=== PATIENT | female | born 1975 | race Caucasian/White ===

== ENCOUNTER 2021-09-06 11:46 | Emergency (ER) | payer OTHER, SELFPAY ==
--- NOTE | ~2021-09-06 | XR_ITS ---
EXAMINATION: XR abdomen/kub 1V DATE: 09/06/2021 13:14 INDICATION: Left flank pain. TECHNIQUE: A supine view of the abdomen on 2 radiographs was obtained. COMPARISON: CT abdomen and pelvis 09/06/2021 FINDINGS: There are no dilated loops of bowel. There are stones in the kidneys measuring up to 4 mm o n the left. There is a 5 mm stone in proximal left ureter. There are surgical clips in the pelvis. Th ere are phleboliths in the pelvis. There are benign bone islands in the pelvis. IMPRESSION: 1. 5 mm stone in proximal left ureter. 2. Bilateral nonobstructing kidney stones. Reviewed, dictated and finalized at location B.
--- NOTE | ~2021-09-06 | CT_ITS ---
EXAMINATION: CT abdomen pelvis wo con DATE: 09/06/2021 12:41 INDICATION: Left flank pain. TECHNIQUE: Computed tomography (CT) of the abdomen and pelvis was performed without intravenous contr ast. Automated exposure control and iterative reconstruction technique were employed. The dose-length product was 415.29 mGy-cm. COMPARISON: CT abdomen and pelvis 01/15/2012 FINDINGS: The visualized portions of the lung bases demonstrated mild atelectasis. There are trace pl eural effusions. The heart size is normal. No pericardial effusion. There is diffuse hepatic steatosi s. The gallbladder, spleen, pancreas, and right adrenal gland are normal. There is a 1.8 cm mass in l eft adrenal gland measuring low-attenuation, consistent with an adenoma. There are approximately 6 st ones in right kidney measuring up to 3 mm. There are approximately 9 stones in left kidney measuring up to 4 mm. There is mild left hydronephrosis. There is a 5 mm stone in proximal left ureter. There i s diverticulosis of the colon without evidence of diverticulitis. The appendix is normal. There are n o dilated loops of bowel. There are no pathologically enlarged lymph nodes. There is no free intraper itoneal fluid. There are benign bone islands in the pelvis. There is mild thoracolumbar spondylosis. IMPRESSION: 1. 5 mm stone in proximal left ureter with mild left hydronephrosis. 2. Bilateral nonobstructing kidney stones. Reviewed, dictated and finalized at location B.
[2021-09-06 11:51] VITALS: BP 105/55; PULSE 64; RESP 18; TEMP 36.2; O2SAT 100
--- NOTE | 2021-09-06 12:05 | PC.NURSE ---
Dr. Tejada at bedside to assess pt.
[2021-09-06 12:21] LABS: Appearance Urine Cloudy (Clear); Bilirubin Urine Negative (Negative); Blood Urine 2+ (Negative); Color Urine Yellow (Yellow); Glucose Urine UA Negative (Negative); Ketones Urine Negative (Negative); Leukocyte Esterase Ur Negative LEU/UL (Negative); Nitrate Urine Negative (Negative); Protein Urine 1+ mg/dL (Negative); Specific Grav Ur 1.025 (1.001-1.035); Urobilinogen Urine 0.2 mg/dL (<2.0); pH Urine 6.5 (5.0-9.0)
[2021-09-06 12:28] LABS: Mucus Urine Rare /lpf; RBC Urine >75 /hpf (0-2); Squamous Epithelial Cell Urine Many /hpf (Few)
[2021-09-06 12:31] LABS: Add Urine Microscopic? YES
--- NOTE | 2021-09-06 12:39 | PC.NURSE ---
Patient off unit to CT.
--- NOTE | 2021-09-06 13:02 | PC.NURSE ---
Pt off unit to radiology for KUB
[2021-09-06 13:05] LABS: Basophils Percent Auto 0.3 % (0.2-1.2); Eosinophils Absolute Auto 0.1 K/mm3 (0-0.3); Eosinophils Percent Auto 1.1 % (0-4.4); Hematocrit 40.7 % (37.0-47.0); Hemoglobin 13.6 g/dL (12.0-15.0); Immature Granulocyte Absolute 0.05 K/mm3 (0.00-0.031); Immature Granulocyte Percent A 0.4 % (0-0.5); Lymphocytes Absolute Auto 2.24 K/mm3 (0.9-3.2); Lymphocytes Percent Auto 18.6 % (18.3-44.2); Mean Corpuscular HGB Conc 33.4 g/dl (32-36); Mean Corpuscular Hemoglobin 30.2 pg (26-34); Mean Corpuscular Volume 90.2 fl (80-100); Mean Platelet Volume 9.8 fl (7.4-10.4); Monocytes Absolute Auto 0.5 K/mm3 (0.1-0.6); Neutrophils Absolute Auto 9.1 K/mm3 (1.3-6.7); Neutrophils Percent Auto 75.6 % (45.5-73.1); Platelet Count Result 332 k/mm3 (150-375); Red Blood Count 4.51 M/mm3 (4.2-5.4); Red Cell Distribution Width 13.1 % (11.5-14.5)
[2021-09-06 13:24] LABS: Alanine Aminotransferase 28 U/L (4-35); Albumin Level 4.3 g/dL (3.5-5.1); Alkaline Phosphatase 65 U/L (38-126); Anion Gap 6 mmol/L (8-16); Aspartate Amino Transferase 36 U/L (14-36); Bilirubin,Total 0.6 mg/dL (0.2-1.3); Blood Urea Nitrogen 7 mg/dL (7-17); Calcium 8.9 mg/dL (8.4-10.2); Carbon Dioxide 25 mmol/L (22-30); Chloride 102 mmol/L (98-107); Estimated CRCL calculation 87 ml/min; Estimated Glomerular Filt Rate > 60; Glucose 154 mg/dL (65-110); Potassium 3.7 mmol/L (3.4-5.0); Sodium 133 mmol/L (137-145)
[2021-09-06] MEDS: fentaNYL CITRATE INJ (*CRX) 100 MCG/2 ML VIAL 50 MCG IV PUSH (13:25)
--- NOTE | 2021-09-06 13:56 | ED.FEMALEGU ---
HPI - Female Genitourinary General Chief complaint: Urogenital-Female Stated complaint: left flank pain/dizziness Time Seen by Provider: 09/06/21 12:01 History of Present Illness HPI Narrative: Patient is a 45-year-old female who presents ER with concerns for kidney stones. Has history of kidney stones in the past. Pain located on left side. Ongoing over the last 2 days. Cramping radiating to the mid abdomen. Associate with nausea. No fevers or chills or sweats. No urinary frequency urgency or dysuria. Reports a little pinkish hue to the urine. Related Data Home Medications Medication Instructions Recorded Confirmed atorvastatin 20 mg PO DAILY 09/06/21 09/06/21 citalopram 40 mg PO DAILY 09/06/21 09/06/21 metformin 500 mg PO DAILY 09/06/21 09/06/21 potassium chloride 10 meq PO DAILY 09/06/21 09/06/21 semaglutide [Ozempic] mg SUBCUT 09/06/21 09/06/21 Allergies Allergy/AdvReac Type Severity Reaction Status Date / Time levofloxacin Allergy Mild Rash Verified 09/06/21 12:06 morphine Allergy Itching Verified 09/06/21 12:06 Penicillins AdvReac Diarrhea Verified 09/06/21 12:06 Review of Systems Review of Systems: All systems reviewed & are unremarkable except as noted in HPI and below Constitutional: Constitutional: Denies chills and Denies fatigue ENT: Denies nasal congestion and Denies sore throat Gastrointestinal: Gastrointestinal: Reports abdominal pain, Reports nausea and Denies vomiting Genitourinary: Genitourinary: Reports hematuria, Denies nocturia, Denies dysuria and Reports flank pain Musculoskeletal: Musculoskeletal: Denies back pain and Denies muscle cramps PMFSH Past Medical History Medical History (Updated 09/06/21 @ 14:00 by Samuel Tejada MD) Depression Diabetes Hypercholesterolemia Ureterolithiasis Surgical History Surgical History (Updated 09/06/21 @ 14:00 by Samuel Tejada MD) H/O lithotripsy Social History Social History (Updated 09/06/21 @ 14:00 by Samuel Tejada MD) Smoking status: Never smoker Exam Narrative: GENERAL: Well-appearing, well-nourished, and in no acute distress. HEAD: Normocephalic, atraumatic. ENT: Mucous membranes moist. CHEST: Clear to auscultation. No respiratory distress. HEART: Regular rate and rhythm. Normal peripheral pulses. ABDOMEN: Soft, nontender, nondistended, no CVA tenderness. EXTREMITIES: Normal range of motion. No edema. SKIN: Warm, dry, no rash. NEURO: Alert and oriented x3. PSYCH: Normal mood and affect. Course Course Emergency Course: Patient informed of results. Discussed treatment plan. Patient verbalized understanding. Discharge home with supportive medications. Vital Signs Vital signs: Vital Signs Temperature 97.2 F L 09/06/21 11:51 Pulse Rate 64 09/06/21 11:51 Respiratory Rate 18 09/06/21 11:51 Blood Pressure 105/55 L 09/06/21 11:51 Pulse Oximetry 100 09/06/21 11:51 Temperature 97.2 F L 09/06/21 11:51 Pulse Rate 64 09/06/21 11:51 Respiratory Rate 18 09/06/21 11:51 Blood Pressure 105/55 L 09/06/21 11:51 Pulse Oximetry 100 09/06/21 11:51 MDM - Female Genitourinary Lab Data Result diagrams: 09/06/21 12:09 09/06/21 12:09 Labs: Lab Results 09/06/21 09/06/21 09/06/21 Range/Units 12:09 12:09 12:09 WBC 12.0 H (4.5-10.0) K/mm3 RBC 4.51 (4.2-5.4) M/mm3 Hgb 13.6 (12.0-15.0) g/dL Hct 40.7 (37.0-47.0) % MCV 90.2 (80-100) fl MCH 30.2 (26-34) pg MCHC 33.4 (32-36) g/dl RDW 13.1 (11.5-14.5) % Plt Count 332 (150-375) k/mm3 MPV 9.8 (7.4-10.4) fl Immature Gran % (Auto) 0.4 (0-0.5) % Neut % (Auto) 75.6 H (45.5-73.1) % Lymph % (Auto) 18.6 (18.3-44.2) % [place] % (Auto) 4.0 (2.6-8.5) % Eos % (Auto) 1.1 (0-4.4) % Baso % (Auto) 0.3 (0.2-1.2) % Lymph # (Auto) 2.24 (0.9-3.2) K/mm3 [place] # (Auto) 0.5 (0.1-0.6) K/mm3 Eos # (Auto) 0.1 (0-0.3) K/mm3 Baso # (Auto
[2021-09-06] MEDS: KETOROLAC 30 MG/ML VIAL (*BKC) IV PUSH (14:29)
[2021-09-06 14:50] VITALS: BP 147/82; PULSE 82; RESP 19; TEMP 36.9; O2SAT 96
== END 2021-09-06 14:53 | disposition home or self-care (01) ==
PROVIDERS: Emergency Medicine; Emergency Provider Emergency Medicine; PCP Family Medicine
DX: N13.2 Hydronephrosis with renal and ureteral calculous obstruction (principal); E78.00 Pure hypercholesterolemia, unspecified; E11.9 Type 2 diabetes mellitus without complications; Z79.84 Long term (current) use of oral hypoglycemic drugs; Z79.899 Other long term (current) drug therapy; F32.A Depression, unspecified
CPT/HCPCS: 36415; 74018; 74176; 80053; 81001; 85025; 96374; 96375; 99284; J1885; J3010

== ENCOUNTER → 2021-09-17 13:33 | Outpatient (CLI) | payer OTHER, SELFPAY ==
--- NOTE | ~2021-09-17 | XR_ITS ---
EXAMINATION: XR abdomen/kub 1V DATE: 09/17/2021 13:55 INDICATION: Left ureteral stone. TECHNIQUE: A supine view of the abdomen on 2 radiographs was obtained. COMPARISON: Abdomen radiographs 09/06/2021, CT abdomen and pelvis 09/06/2021 FINDINGS: There is a 5 mm stone in proximal left ureter at L4. There are stones in the kidneys measur ing up to 5 mm on the left. There are phleboliths in the pelvis. There is a surgical clip in the pelv is. There are no dilated loops of bowel. IMPRESSION: 1. 5 mm stone in proximal left ureter. 2. Bilateral nonobstructing kidney stones. Reviewed, dictated and finalized at location D.
== END ==
PROVIDERS: PCP Family Medicine; Visit Provider Urology
DX: N20.2 Calculus of kidney with calculus of ureter (principal)
CPT/HCPCS: 74018

== ENCOUNTER 2021-09-20 14:06 | Outpatient (CLI) | payer OTHER, SELFPAY ==
--- NOTE | 2021-09-20 14:33 | ECG_ITS ---
Measurements Intervals [place] Rate: 66 P: 33 DE: 156 QRS: 38 QRSD: 89 T: 56 QT: 432 QTc: 455 Interpretive Statements SINUS RHYTHM INCOMPLETE RIGHT BUNDLE BRANCH BLOCK BASELINE ARTIFACT- I, II, III, AVR, AVL, AVF BORDERLINE ECG Electronically Signed On 09-20-2021 15:27:33 CDT by Say Arguelles D.O.
[2021-09-20 15:00] LABS: Appearance Urine Cloudy (Clear); Bilirubin Urine Negative (Negative); Blood Urine 1+ (Negative); Color Urine Yellow (Yellow); Glucose Urine UA Negative (Negative); Ketones Urine Negative (Negative); Leukocyte Esterase Ur Negative LEU/UL (Negative); Nitrate Urine Negative (Negative); Protein Urine Negative (Negative); Specific Grav Ur 1.025 (1.001-1.035); Urobilinogen Urine 0.2 mg/dL (<2.0); pH Urine 5.5 (5.0-9.0)
[2021-09-20 15:06] LABS: Bacteria Urine Trace /hpf; Mucus Urine Rare /lpf; Squamous Epithelial Cell Urine Many /hpf (Few)
[2021-09-20 15:07] LABS: Add Urine Microscopic? YES
[2021-09-20 15:08] LABS: Prothrombin Time 12.8 Seconds (11.1-14.7)
[2021-09-20 15:09] LABS: Partial Thromboplastin Time 28.2 SECONDS (22.3-36.8)
== END 2021-09-20 14:07 | disposition home or self-care (01) ==
PROVIDERS: PCP Family Medicine; Visit Provider Urology
DX: N20.1 Calculus of ureter (principal); Z01.818 Encounter for other preprocedural examination; I10 Essential (primary) hypertension; I45.10 Unspecified right bundle-branch block
CPT/HCPCS: 36415; 81001; 85610; 85730; 93005

== ENCOUNTER 2021-09-21 01:21 | Day surgery (SDC) | payer OTHER, SELFPAY ==
[2021-09-20 13:21] VITALS: BMI 29.1
--- NOTE | 2021-09-20 13:42 | PC.NURSE ---
Report to the Outpatient Waiting Room, entrance under the green pavilion located off [facility], at time __9:45 AM on date __09/21/21 . OR Time: __11:45AM . - You and your visitor will be asked a series of questions to screen for COVID 19 for your protection. - Only one visitor is allowed at this time. - The patient visitor is requested to leave or wait in car when not with patient. - A mask is required within the hospital. Patients may have clear liquids (water, carbonated beverages, clear teas, apple juice) until 3 hours prior to surgery with a maximum of 20 ounces. - No food from midnight until time of surgery - Infants may have breast milk until 4 hours before surgery, infant formula 6 hours prior to surgery. - Children will be allowed to drink immediately following surgery. If applicable, please bring a bottle or sippy cup to assist with drinking. Juice, water, soda, and popsicles are readily available. For infants on formula, please bring formula the day of surgery. Pacifiers are allowed. Take the following medications with a SIP of water the morning of surgery: ___CITALOPRAM, HYDROCODONE NEEDED Medications to discontinue per physician NONE Date to take last dose Please no make-up, nail mongolian, hairspray, perfume, deodorant, or body powder the day of surgery. No jewelry (including any body piercings) or valuables the day of surgery, leave them at home. Please take a shower or bath the night before, or the morning of, surgery with an antibacterial soap. Wear comfortable, loose fitting clothing. Children are encouraged to wear pajamas. - Jewelry must be removed prior to entering the operating room. Rings and piercings that are not removed may be cut off. - The hospital will not accept responsibility for valuables. - Please leave all valuables, including medications, at home the day of surgery. If you are going home after surgery, a licensed mule driver must drive you home. - NO public transportation without another adult. - We recommend that an adult stay with you for 24 hours following discharge. - We also recommend that you do not drive, make important decision, drink alcoholic beverages, or take any drugs that were not prescribed by your health care provider for at least 24 hours after your discharge time. For Pediatric surgeries, we recommend two adults accompany the child home (only one inside the building at this time). Follow any additional instructions given to you from your surgeon. If you or anyone in your household have experienced Covid symptoms in the past week, please notify your surgeon or the nurse liaison at the phone number below for possible testing. Telephone instructions given to __PATIENT and asked if any additional questions and then verbalized understanding. Patient advised to call surgeon office or pre surgery nurse liaison [phone] if any additional questions.
--- NOTE | 2021-09-20 14:09 | WPDANESEPP ---
Anes - Eval Pre Procedure Procedure: Operation Date: 09/21/21 11:45 Proposed Procedures p Left Extracorporeal Shock Wave Lithotripsy - Jose Benito MD Date/Time: 09/20/21 14:09 Pre Op Diagnosis: Lt Ureteral Stone Patient Data Age: 45 Gender: F Height: 1.63 m Weight: 77 kg Allergies Allergy/AdvReac Type Severity Reaction Status Date / Time morphine Allergy Itching Verified 09/20/21 13:14 Penicillins AdvReac Diarrhea Verified 09/20/21 13:14 Home Medications Medication Instructions Recorded Confirmed Type atorvastatin 20 mg PO DAILY 09/06/21 09/20/21 History citalopram 40 mg PO QAM 09/06/21 09/20/21 History hydrocodone-acetaminophen 1 tablet PO Q6H PRN #20 tablet 09/06/21 09/20/21 Rx metformin 500 mg PO BID 09/06/21 09/20/21 History ondansetron 4 mg PO Q6H PRN #8 tablet 09/06/21 09/20/21 Rx potassium chloride 10 meq PO BID 09/06/21 09/20/21 History semaglutide [Ozempic] 0.25 mg SUBCUT WEEKLY 09/06/21 09/20/21 History ergocalciferol (vitamin D2) 1,250 mcg PO WEEKLY 09/20/21 09/20/21 History hydrochlorothiazide 50 mg PO QAM 09/20/21 09/20/21 History Patient hx anesthesia problems: none Family hx anesthesia problems: none Results Review: All pre-operative results and documents have been reviewed as part of the pre-operative evaluation. [facility] Past Medical History Medical History (Updated 09/20/21 @ 14:10 by Prabhjot Enriquez DO) Anxiety Depression Diabetes Hypercholesterolemia Hypertension Ureterolithiasis Surgical History Surgical History (Updated 09/20/21 @ 14:10 by Prabhjot Enriquez DO) H/O lithotripsy History of hysterectomy Social History Social History (Updated 09/06/21 @ 14:00 by Samuel Tejada MD) Smoking packs per day: 1 Smoking cigarettes per day: 20.0 Years smoked: 20 Smoking pack-years: 20.00 Smoking status: Former smoker Tobacco type: cigarettes and e-cigarettes/vaping Smoking end date: 09/05/21 Additional smoking assessment comments: CURRENTLY VAPING Alcohol intake: current Substance use: never Additional living arrangements comments: HUSB AND FATHER Spiritual care concerns: No Exam Day of Procedure 09/20/21 14:09
[2021-09-21] VITALS (7 sets, daily range): BP systolic 104–123; BP diastolic 55–70; PULSE 58–91; RESP 10–16; TEMP 36.1–36.6; O2SAT 95–100
--- NOTE | ~2021-09-21 | XR_ITS ---
EXAMINATION: XR abdomen/kub 1V INDICATION: Urolithiasis TECHNIQUE: Supine views of the abdomen were obtained on 2 radiographs. COMPARISON: 09/17/2021 FINDINGS: A 6 mm stone projects in the left ureter at the level of the left L4 transverse process. A small cluster of stones is present in the lower pole of the left kidney. There are punctate right kid damian stones measuring up to 3 mm. Phleboliths are noted in the left pelvis. There is a surgical clip i n the right pelvis. The bowel gas pattern is normal. The visualized lung bases are clear. IMPRESSION: 1. Stable left ureteral stone. 2. Bilateral nephrolithiasis. Reviewed, dictated and finalized at location B.
--- NOTE | 2021-09-21 06:32 | WPDHPUPDATE1 ---
History and Physical Update Update Date/Time: 09/21/21 06:32 History and Physical has been reviewed, including an updated exam of the patient. There are NO changes in the patient's condition. Risks, benefits, and alternatives have been discussed and questions answered. Patient agrees to proceed with procedure.
[2021-09-21] MEDS: LACTATED RINGERS 1,000 ML 30 ML IV CONT ×2 (10:15→11:46)
[2021-09-21 10:20] LABS: Glucose Point of Care 176 mg/dl (65-105)
--- NOTE | 2021-09-21 10:29 | WPDANESEFPP ---
Anes - Eval Final PreProcedure Day of Procedure 09/21/21 10:29 Patient weight: overweight Heart: regular rate and rhythm Lungs: clear to auscultation Airway: Mallampati scale class II Neurological: alert and oriented Last oral intake: >/= 8 hours ASA classification: III Emergent: no Anesthetic plan: proceed Anesthesia type and monitoring: general and standard monitoring Results Review: All pre-operative results and documents have been reviewed as part of the pre-operative evaluation. Informed Consent: The patient's anesthetic plan and its attendant risks and benefits were discussed with the patient/family/POA. Questions were solicited and answers provided to the satisfaction of the patient/family/POA.
[2021-09-21] MEDS: fentaNYL CITRATE INJ (*CRX) 100 MCG/2 ML VIAL 50 MCG IV PUSH (10:35)
[2021-09-21] MEDS: ceFAZolin 2 GM/D5W 50 ML 2 GM/50 ML BAG IVPB (10:57)
--- NOTE | 2021-09-21 11:39 | W.PM.PROC2 ---
Procedure Note - Detailed Date of Procedure 09/21/21 Pre-op Diagnosis Lt Ureteral Stone Post-op Diagnosis Same Procedure Performed Left ureteral ESWL Surgeon Jose Benito MD Anesthesia General Description of Procedure The patient was brought to the operative suite where she was placed in the supine position on the Dornier lithotripsy table. The focal point of the lithotripter was placed at a 6mm left mid-ureteal calculus. A total of 3000 shocks were delivered at a power setting of 1-6. There appeared to be good fragmentation of the stone. The patient tolerated the procedure well and was taken to the recovery room in good condition. Estimated Blood Loss 0 Drains No Packing No Pathology None sent Complications No immediate complications Condition Stable Disposition PACU
[2021-09-21] MEDS: KETOROLAC 30 MG/ML VIAL (*BKC) IV PUSH (11:41)
[2021-09-21 12:15] LABS: Glucose Point of Care 138 mg/dl (65-105)
[2021-09-21] MEDS: oxyCODONE HCL (*CRX) 5 MG TAB IR PO (13:12)
== END 2021-09-21 13:31 | disposition home or self-care (01) ==
PROVIDERS: PCP Family Medicine; Visit Provider Urology
PROC: (CPT 50590; principal; 2021-09-21 11:45)
DX: N20.1 Calculus of ureter (principal); Z79.84 Long term (current) use of oral hypoglycemic drugs; F41.8 Other specified anxiety disorders; E11.9 Type 2 diabetes mellitus without complications; I10 Essential (primary) hypertension; E78.00 Pure hypercholesterolemia, unspecified
CPT/HCPCS: 50590; 36415; 74018; 81001; 82948; 85610; 85730; 93005; A9270; J0690; J1100; J1885; J2250; J2405; J2704; J3010; J7120

== ENCOUNTER → 2021-10-08 10:49 | Outpatient (CLI) | payer OTHER, SELFPAY ==
--- NOTE | ~2021-10-08 | XR_ITS ---
XR abdomen/kub 1V 10/08/2021 11:52 Indication: Renal stones Procedure: KUB Comparison: 09/21/2021 Findings: There are bilateral renal stones, more numerous on the left. There are pelvic phleboliths. There are surgical clips in the pelvis. Bowel gas pattern is nonobstructive. Impression: 1: Bilateral nephrolithiasis. Reviewed, dictated and finalized at location A. Impression: 1: Bilateral nephrolithiasis.
== END ==
PROVIDERS: PCP Family Medicine; Visit Provider Urology
DX: N20.0 Calculus of kidney (principal)
CPT/HCPCS: 74018

== ENCOUNTER → 2022-01-29 12:27 | Outpatient (CLI) | payer OTHER, SELFPAY ==
--- NOTE | ~2022-01-29 | MM_ITS ---
EXAMINATION: MM screening maddie BI w christina HISTORY: Screening mammogram TECHNIQUE: Craniocaudal and mediolateral oblique 3-D tomosynthesis images were obtained and synthetic 2-D images were generated. Bilateral rotated lateral CC views. CAD analysis was submitted and interp reted. COMPARISON: No prior mammogram is available for comparison at this institution. BREAST PARENCHYMAL COMPOSITION: There are scattered areas of fibroglandular density. FINDINGS: There is no evidence of suspicious mass, calcification, or architectural distortion to sugg est malignancy in either breast.. IMPRESSION: 1. No mammographic evidence of malignancy. 2. Recommend routine screening mammography in one year. BI-RADS Category 1: Negative Reviewed, dictated and finalized at location A.
== END ==
PROVIDERS: PCP Family Medicine; Visit Provider Physician Assistant
DX: Z12.31 Encounter for screening mammogram for malignant neoplasm of breast (principal)
CPT/HCPCS: 77063; 77067

== ENCOUNTER → 2023-03-14 09:12 | Outpatient (CLI) | payer OTHER, SELFPAY ==
--- NOTE | ~2023-03-14 | US_ITS ---
EXAMINATION: US pelvic complete w TV DATE: 03/14/2023 09:42 INDICATION: Pelvic pain Comparison:No prior studies for comparison. TECHNIQUE: Multiple transabdominal and endovaginal sonographic images of the pelvis performed. FINDINGS: The uterus is surgically absent. The ovaries are not visualized due to overlying bowel. There is no free fluid in the pelvis. There a re no abnormal masses seen on either side. In the area of palpable concern in the right lower abdomen there is a complex hypoechoic irregular sh aped mass which is wider than tall, no posterior features measuring 1.4 x 1.4 x 0.9 cm. IMPRESSION: 1. Complex 1.4 cm mass in the right lower abdomen in the area of palpable concern, nonspecific. Corre lation with contrast-enhanced CT recommended. Reviewed, dictated and finalized at location B. IMPRESSION: 1. Complex 1.4 cm mass in the right lower abdomen in the area of palpable fransisco rn, nonspecific. Correlation with contrast-enhanced CT recommended.
== END ==
PROVIDERS: PCP Family Medicine; Visit Provider Obstetrics & Gynecology
DX: R19.00 Intra-abdominal and pelvic swelling, mass and lump, unspecified site (principal)
CPT/HCPCS: 76830; 76856

== ENCOUNTER → 2023-04-09 09:51 | Outpatient (CLI) | payer OTHER, SELFPAY ==
--- NOTE | ~2023-04-09 | CT_ITS ---
EXAMINATION: CT abdomen pelvis w con INDICATION: Right lower quadrant pain TECHNIQUE: Computed tomographic images of the abdomen and pelvis were obtained after the administrati on of 100 cc of Omnipaque 350 intravenous contrast. The dose-length product (DLP) was 401.11 mGy-cm. Automated exposure control and iterative reconstruction technique were employed. COMPARISON: 09/06/2021; ultrasound, 03/14/2023 FINDINGS: Minimal dependent atelectasis is present in the lung bases. The heart size is normal. There is a small sliding hiatal hernia. The liver, spleen, pancreas, gallbladder, and right adrenal gland are normal. There is an unchanged 1.8 cm mass of the left adrenal gland, consistent with an adenoma. Nonobstructing stones of the right kidney measure up to 4 mm. Nonobstructing stones of the left kidne y lower pole measure up to 8 mm. There are no stones of the ureters or bladder. No pathologically enl arged abdominal or pelvic lymph nodes are identified. No free intraperitoneal gas or evidence of felipa l obstruction. The appendix is normal. There is a small ventral hernia containing fat of the right lo wer quadrant (image 89). IMPRESSION: 1. Small ventral hernia the right lower quadrant containing fat. Reviewed, dictated and finalized at location F. [employer]
[2023-04-09 10:14] LABS: Estimated Glomerular Filt Rate > 60
== END ==
PROVIDERS: PCP Obstetrics & Gynecology; Visit Provider Obstetrics & Gynecology
DX: R10.9 Unspecified abdominal pain (principal); R93.89 Abnormal findings on diagnostic imaging of other specified body structures
CPT/HCPCS: 74177; Q9967

== ENCOUNTER 2023-10-16 13:28 | Outpatient (CLI) | payer OTHER, SELFPAY ==
--- NOTE | ~2023-10-16 | MM_ITS ---
EXAMINATION: MM screening [facility] BI w christina HISTORY: Screening TECHNIQUE: Craniocaudal and mediolateral oblique 3-D tomosynthesis images were obtained and synthetic 2-D images were generated. CAD analysis was submitted and interpreted. COMPARISON: 01/29/2022 BREAST PARENCHYMAL COMPOSITION: Not dense: There are scattered areas of fibroglandular density. FINDINGS: There is a new focal asymmetry in the upper outer quadrant of the right breast, middle thir d. The left breast is stable without evidence for malignancy. IMPRESSION: 1. New focal right breast asymmetry. 2. Additional mammographic views and possible breast ultrasound are recommended. BI-RADS Category 0: Incomplete: Needs additional imaging evaluation. Reviewed, dictated and finalized at location B. IMPRESSION: 1. New focal right breast asymmetry. 2. Additional mammographic views and possible breast ultrasound are recommended . BI-RADS Category 0: Incomplete: Needs additional imaging evaluation.
== END 2023-10-16 13:29 ==
LOC: MICIMG 13:29
PROVIDERS: PCP Nurse Practitioner; Visit Provider Nurse Practitioner
DX: Z12.31 Encounter for screening mammogram for malignant neoplasm of breast (principal); R92.8 Other abnormal and inconclusive findings on diagnostic imaging of breast
CPT/HCPCS: 77063; 77067

== ENCOUNTER 2023-11-12 07:53 | Outpatient (CLI) | payer OTHER, SELFPAY ==
--- NOTE | ~2023-11-12 | MM_ITS ---
EXAMINATION: MM diagnostic maddie RT w christina HISTORY: Focal asymmetry right breast TECHNIQUE: Additional 3-D tomosynthesis spot compression images of the right breast were performed an d synthetic 2-D images were generated. CAD analysis was submitted and interpreted. COMPARISON: 09/19/2023, 01/29/2022 FINDINGS: There are scattered fibroglandular densities. The focal asymmetry in the slightly upper, slightly outer right breast effaces with spot compression. No persistent mass lesion or distortion seen. No suspicious mass opacification. IMPRESSION: No mammographic evidence for malignancy. Return screening mammography advised. BI-RADS Category 1: Negative Reviewed, dictated and finalized at location .
== END 2023-11-12 07:54 ==
PROVIDERS: PCP Nurse Practitioner; Visit Provider Nurse Practitioner
DX: R92.8 Other abnormal and inconclusive findings on diagnostic imaging of breast (principal)
CPT/HCPCS: 77061; 77065; G0279

== ENCOUNTER 2024-05-07 01:36 | Day surgery (SDC) | payer OTHER, SELFPAY ==
[2024-04-28 16:01] VITALS: BMI 29.2
[2024-05-07 13:50] VITALS: BP 143/78; PULSE 71; RESP 18; TEMP 36.3; O2SAT 99; BMI 29.7
[2024-05-07 14:06] LABS: Glucose Point of Care 128 mg/dl (65-105)
--- NOTE | 2024-05-07 14:20 | WPDANESEPPF ---
Anes - Initial Pre Proc Eval Procedure: Operation Date: 05/07/24 14:30 Proposed Procedures p Screening Colonoscopy - Konstantin Smith MD Date/Time: 05/07/24 14:20 Surgeon: Konstantin Smith MD Pre Op Diagnosis: Screening for malignant neoplasm of colon Patient Data Age: 48 Gender: F Height: 1.63 m Weight: 78.7 kg Last Vital Signs Temp 36.3 C L 05/07/24 13:50 Pulse 71 05/07/24 13:50 Resp 18 05/07/24 13:50 BP 143/78 H 05/07/24 13:50 Pulse Ox 99 05/07/24 13:50 O2 Del Method Room Air 05/07/24 13:50 Allergies Allergy/AdvReac Type Severity Reaction Status Date / Time doxycycline Allergy Intermediate ITCHING Verified 05/07/24 13:49 morphine Allergy Intermediate Itching Verified 05/07/24 13:49 Penicillins AdvReac Diarrhea Verified 05/07/24 13:49 Home Medications ?Medication ?Instructions ?Recorded ?Confirmed ?Type atorvastatin 20 mg tablet 20 mg PO DAILY 09/06/21 05/07/24 History metformin 500 mg tablet,extended 1,000 mg PO BID 09/06/21 05/07/24 History release 24 hr ergocalciferol (vitamin D2) 1,250 1,250 mcg PO WEEKLY 09/20/21 05/07/24 History mcg (50,000 unit) capsule ashwagandha root extract 500 mg 500 mg PO DAILY 04/28/24 04/28/24 History capsule cranberry 500 mg capsule 500 mg PO DAILY 04/28/24 05/07/24 History dapagliflozin propanediol 10 mg 10 mg PO DAILY 04/28/24 05/07/24 History tablet (Farxiga) dapagliflozin propanediol 5 mg mg 04/28/24 History tablet (Farxiga) famotidine 10 mg tablet (Acid 10 mg PO DAILY 04/28/24 05/07/24 History Popcorn Vendor (famotidine)) hydroxyzine HCl 25 mg tablet 25 mg PO HS 04/28/24 05/07/24 History magnesium oxide 500 mg capsule 500 mg PO DAILY 04/28/24 05/07/24 History venlafaxine 150 mg 150 mg PO QAM 04/28/24 05/07/24 History capsule,extended release 24 hr Laboratory Tests 05/07/24 13:56 POC Capillary Glucose 128 H mg/dl (65-105) Patient hx anesthesia problems: none Family hx anesthesia problems: none Results Review: All pre-operative results and documents have been reviewed as part of the pre-operative evaluation. [facility] Past Medical History Medical History Anxiety Hypertension Depression Hypercholesterolemia Diabetes Ureterolithiasis Surgical History Surgical History History of hysterectomy H/O lithotripsy Social History Social History Smoking packs per day: 0.5 Smoking cigarettes per day: 10.0 Years smoked: 20 Smoking pack-years: 10.00 Smoking status: Former smoker Tobacco type: cigarettes and e-cigarettes/vaping Smoking end date: 09/05/21 Additional smoking assessment comments: VAPING X 3 YEARS SINCE 2020 Alcohol intake: current Substance use: never Substance use type: does not use Living arrangements: with family Additional living arrangements comments: HUSB AND FATHER Spiritual care concerns: No Anes - Eval Final PreProcedure Day of Procedure 05/07/24 14:20 Patient weight: overweight Heart: regular rate and rhythm Lungs: clear to auscultation Airway: Mallampati scale class 1 and special considerations (dentures) Neurological: alert and oriented Last oral intake: >/= 8 hours ASA classification: III Emergent: no Anesthetic plan: proceed Anesthesia type and monitoring: general GIVS Results Review: All pre-operative results and documents have been reviewed as part of the pre-operative evaluation. Informed Consent: The patient's anesthetic plan and its attendant risks and benefits were discussed with the patient/family/POA. Questions were solicited and answers provided to the satisfaction of the patient/family/POA.
[2024-05-07] MEDS: LACTATED RINGERS 1,000 ML 150 ML IV CONT (14:47)
--- NOTE | 2024-05-07 14:52 | PM.HPGS ---
History of Present Illness History of Present Illness Consent: Risks, benefits, and alternatives have been discussed and questions answered. Patient agrees to proceed with procedure. Chief complaint: Screening for malignant neoplasm of colon Narrative: María Dumont is a 48 year old female here for first screening colonoscopy Review of Systems Review of Systems: All systems reviewed & are unremarkable except as noted in HPI and below PMFSH Past Medical History Medical History (Updated 05/07/24 @ 14:53 by Konstantin Smith MD) Colon cancer screening Anxiety Hypertension Depression Hypercholesterolemia Diabetes Ureterolithiasis Surgical History Surgical History History of hysterectomy H/O lithotripsy Social History Social History Smoking packs per day: 0.5 Smoking cigarettes per day: 10.0 Years smoked: 20 Smoking pack-years: 10.00 Smoking status: Former smoker Tobacco type: cigarettes and e-cigarettes/vaping Smoking end date: 09/05/21 Additional smoking assessment comments: VAPING X 3 YEARS SINCE 2020 Alcohol intake: current Substance use: never Substance use type: does not use Living arrangements: with family Additional living arrangements comments: HUSB AND FATHER Spiritual care concerns: No Meds Home Medications and Allergies Home Medications ?Medication ?Instructions ?Recorded ?Confirmed ?Type atorvastatin 20 mg tablet 20 mg PO DAILY 09/06/21 05/07/24 History metformin 500 mg tablet,extended 1,000 mg PO BID 09/06/21 05/07/24 History release 24 hr ergocalciferol (vitamin D2) 1,250 1,250 mcg PO WEEKLY 09/20/21 05/07/24 History mcg (50,000 unit) capsule ashwagandha root extract 500 mg 500 mg PO DAILY 04/28/24 04/28/24 History capsule cranberry 500 mg capsule 500 mg PO DAILY 04/28/24 05/07/24 History dapagliflozin propanediol 10 mg 10 mg PO DAILY 04/28/24 05/07/24 History tablet (Farxiga) dapagliflozin propanediol 5 mg mg 04/28/24 History tablet (Farxiga) famotidine 10 mg tablet (Acid 10 mg PO DAILY 04/28/24 05/07/24 History [employer] 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 (famotidine)) hydroxyzine HCl 25 mg tablet 25 mg PO HS 04/28/24 05/07/24 History magnesium oxide 500 mg capsule 500 mg PO DAILY 04/28/24 05/07/24 History venlafaxine 150 mg 150 mg PO QAM 04/28/24 05/07/24 History capsule,extended release 24 hr Allergies Allergy/AdvReac Type Severity Reaction Status Date / Time doxycycline Allergy Intermediate ITCHING Verified 05/07/24 13:49 morphine Allergy Intermediate Itching Verified 05/07/24 13:49 Penicillins AdvReac Diarrhea Verified 05/07/24 13:49 Vital Signs Vital Signs - 24 hr 05/07/24 13:50 Temperature 97.4 F L Pulse Rate 71 Respiratory Rate 18 Blood Pressure 143/78 H Pulse Oximetry 99 Oxygen Delivery Room Air Exam Const: General: comfortable and no acute distress HENMT: Face/Nose/Sinus: Normal nares present Eyes: General: appearance normal, both eyes and all related structures Neck: Neck: no JVD Resp: Auscultation: clear to auscultation bilaterally Cardio: Rate: regular rate Rhythm: regular rhythm GI: Inspection: non-distended GI Palp: Yes Soft to palpation Skin: General skin exam: normal color Neuro: General: gait normal Speech: normal speech Extrem: General: normal to inspection Psych: Mental Status: mental status grossly normal Assessment and Plan Assessment and plan (1) Colon cancer screening: Code(s): Z12.11 - Encounter for screening for malignant neoplasm of colon Status: Acute Assessment and Plan: colonoscopy
[2024-05-07 15:09] VITALS: BP 114/56; PULSE 64; RESP 18; O2SAT 100
[2024-05-07 15:19] VITALS: BP 115/78; PULSE 68; RESP 18; O2SAT 99
[2024-05-07 15:29] VITALS: BP 132/70; PULSE 66; RESP 18; O2SAT 100
== END 2024-05-07 15:38 | disposition home or self-care (01) ==
PROVIDERS: PCP Nurse Practitioner; Visit Provider Internal Medicine Gastroenterology
PROC: 0DJD8ZZ Inspection of Lower Intestinal Tract, Via Natural or Artificial Opening Endoscopic (ICD-10-PCS; CPT 45378; principal; 2024-05-07 14:30)
DX: Z12.11 Encounter for screening for malignant neoplasm of colon (principal); K57.30 Diverticulosis of large intestine without perforation or abscess without bleeding; K64.8 Other hemorrhoids; F17.290 Nicotine dependence, other tobacco product, uncomplicated; Z79.84 Long term (current) use of oral hypoglycemic drugs
CPT/HCPCS: 45378; 82948; J2003; J2704; J7120